=== PATIENT | female | born 1955 | race Caucasian/White ===

== ENCOUNTER 2024-07-27 08:06 | Emergency (ER) | payer OTHER, SELFPAY ==
[2024-07-27 08:10] VITALS: BP 88/50
[2024-07-27 09:00] VITALS: BP 149/79
--- NOTE | 2024-07-27 09:06 | ED.GENMED ---
History of Present Illness
General
Chief Complaint: Musculo-Skeletal Complaint
Source: patient and family
Time Seen by Provider: 07/27/24 08:39
History of Present Illness
History of Present Illness:
This patient is a 68-year-old female presents emergency department after tripping while trying to lift her leg over a gate and catching her foot. There were no preceding symptoms. She states that she hit her head on a table as she fell to the
floor and landed on both her knees. There was no loss of consciousness and patient does not take anticoagulation or antiplatelet agents. She is complaining primarily of right shoulder pain but also notes a very slight headache and that her
bilateral knees are a little sore. She denies neck pain, back pain, numbness, chest pain, shortness of breath, abdominal pain, dizziness, visual changes, vomiting. She is slightly nauseous from the pain.
Past History
Past History
ED Past Medical History: HTN
ED Past Surgical History: Gynecological
Social History
Tobacco: Non-smoker
Alcohol: Occasional
Drug: None
Living: alone
Phy Exam
Physical Exam
Physical Exam:
GENERAL: Alert , appears to be uncomfortable in regards to right shoulder
EYE: pupils equal and reactive, EOMI, no photophobia
NECK: Supple, no significant adenopathy, no midline tenderness.
ENT: o/p clr, mmm, no delgado, no raccoon, no rhinorrhea.
CARDIAC: Regular rate and rhythm .
LUNGS: Clear breath sounds bilaterally, no acute respiratory distress, no wheezes/rales/rhonchi
ABDOMEN: Soft, without focal tenderness, no r/g
NEUROLOGICAL: Alert and oriented, no focal neuro deficits
SKIN: Warm and dry, skin intact. Slight bruise noted at right patella area without associated tenderness deformity or limitation in range of motion
MUSCULOSKELETAL: No edema, well perfused. There is tenderness noted at the right upper shoulder area with limited range of motion due to pain. No tenderness noted at the scapula, clavicle, or distal humerus/elbow.
PSYCH: Normal and appropriate interaction.
Course
Orders/Labs/Results
Orders:
Orders
07/27/24 08:16
Shoulder, Right, Trauma [CR Shoulder, Trauma - Right] Urgent
Comment:
Reason For Exam: fall, right shoulder pain
07/27/24 08:18
CT Head W/o Iv Contrast Urgent
Comment:
Reason For Exam: fall, posterior head strike
07/27/24 09:06
Sling Right-Treatment ONCE
Oxycodone/Acetaminophen [Percocet 5/325] 1 tablet PO NOW STA
Vital Signs
Initial and Last Documented VS:
Initial Vital Signs
Temp Pulse Resp BP Pulse Ox
97.5 F 71 18 88/50 99
07/27/24 08:10 07/27/24 08:10 07/27/24 08:10 07/27/24 08:10 07/27/24 08:10
Last Documented Vital Signs
Temp Pulse Resp BP Pulse Ox
97.5 F 71 18 149/79 98
07/27/24 08:10 07/27/24 08:10 07/27/24 08:10 07/27/24 09:00 07/27/24 09:00
*Critical Care Note
Total Time (30-74mins, 75-104mins- exclusive of procedures): Not Applicable
Update Note
Update Note:
Patient presents to the Emergency Department with __fall
Number and Complexity of Problems Addressed at the Encounter
� Chronic conditions affecting care:
� Acute Exacerbation and/or Progression of Chronic Illness:
� Differential Diagnosis includes: But not limited to subdural hematoma, shoulder fracture, clavicle fracture, etc. etc.
Amount and/or Complexity of Data to be Reviewed and Analyzed
� I performed an independent evaluation of and my interpretation is:
EKG:
CT: Read by me, NAD
Xrays: Read by me, right shoulder with humeral fracture noted, no dislocation, no pneumothorax
Laboratory Studies:
Other:
� Review of other/old records reveals:
� Clinical information was obtained by an independent historian:
� Prescriptions/Medications Considered but not given:
� Further testing considered but not performed:
Risk of Complications and/or Morbidity or Mortality of Patient Management
� Social determinants of health affecting care:
� Discussion with other providers (PCP, Hospitalists, Consultants, etc):
� Escalation of care including admission/observation vs risk of discharge considered: Risk and benefits of narcotics discussed with patient as well as importance of Ortho follow-up. She elects to take narcotics cautiously for
pain understanding potential side effects.
ED Attending Note
-
Portions of this chart may have been created with voice recognition software.� Occasional wrong word or��sound alike� substitutions may have occurred due to the inherent limitations of voice recognition software.
Discharge Plan
Departure
Patient Disposition: Home (Routine Discharge)
Date of Disposition: 07/27/24
Time of Disposition: 09:32
Patient with high blood pressure during this ER visit?: Yes
Condition: Good
Discharge Problem:
Closed fracture of shoulder
Instructions: How to Use a Shoulder Sling, Shoulder or upper arm fracture, BLOOD PRESSURE
Prescriptions:
New
oxycodone-acetaminophen [Percocet] 5-325 mg tablet
1 tab PO Q4HPRN PRN (Reason: pain) Qty: 13 0RF
Referrals:
Edgard Ocampo MD [Active] - Next open appointment
Activity Restrictions/Additional Instructions:
PLEASE FOLLOW-UP WITH THE ORTHOPEDIC DOCTOR PROMPTLY. IF YOU DEVELOP INCREASING OR NEW PAIN, NUMBNESS, SWELLING, DIZZINESS, SEVERE HEADACHE, VOMITING, OR OTHER WORRISOME SIGNS, PLEASE RETURN TO THE ER IMMEDIATELY.
Interventions
Interventions:
*Risk Screen - Suicide Last Done: 07/27/24 09:16
*General Assessment Last Done: 07/27/24 09:16
*Neglect/Abuse Screening Last Done: 07/27/24 09:16
ED- Fall Risk Assessment Last Done: 07/27/24 09:04
*ED COVID-19 Vaccine History Last Done: 07/27/24 09:16
ED-Musculoskeletal Assessment Last Done: 07/27/24 09:04
Discharge Date and Time
Print Language: [place]
[2024-07-27] MEDS: PERCOCET 5/325 1 TABLET PO (09:10)
== END 2024-07-27 09:54 | disposition home or self-care (01) ==
LOC: EMR 08:06
PROVIDERS: EMERGENCY PHYSICIAN Emergency Medicine; FAMILY PHYSICIAN Nurse Practitioner Family
DX: S42.201A Unspecified fracture of upper end of right humerus, initial encounter for closed fracture (principal); S09.90XA Unspecified injury of head, initial encounter; R51.9 Headache, unspecified; S80.01XA Contusion of right knee, initial encounter; W18.39XA Other fall on same level, initial encounter; I10 Essential (primary) hypertension
CPT/HCPCS: 99284; 70450; 73030

== ENCOUNTER 2024-08-02 06:07 | Day surgery (SDC) | payer OTHER, SELFPAY ==
[2024-08-01 13:00] VITALS: BMI 23.6
[2024-08-02] VITALS (8 sets, daily range): BP systolic 127–141; BP diastolic 62–83; BMI 23.6
[2024-08-02] MEDS: TYLENOL 1000 MG PO (07:06)
[2024-08-02] MEDS: MOBIC 15 MG PO (07:07)
[2024-08-02] MEDS: NORMOSOL-R/PLASMALYTE-A 1000 IV (07:07)
== END 2024-08-02 12:18 | disposition home or self-care (01) ==
LOC: SDS 06:07
PROVIDERS: ATTENDING PHYSICIAN Orthopaedic Surgery; FAMILY PHYSICIAN Nurse Practitioner Family
DX: S42.291A Other displaced fracture of upper end of right humerus, initial encounter for closed fracture (principal); W01.0XXA Fall on same level from slipping, tripping and stumbling without subsequent striking against object, initial encounter
CPT/HCPCS: 23615; C1713; 36415; 73030; 76000; 93005

== ENCOUNTER 2024-09-29 14:08 | Outpatient (RCR) | payer OTHER, SELFPAY | END 2024-09-29 23:59 | disposition home or self-care (01) | LOC: RPT 14:08 | PROVIDERS: ATTENDING PHYSICIAN Orthopaedic Surgery; FAMILY PHYSICIAN Nurse Practitioner Family | DX: Z47.89 Encounter for other orthopedic aftercare (principal); S42.291D Other displaced fracture of upper end of right humerus, subsequent encounter for fracture with routine healing; M25.511 Pain in right shoulder; Z73.6 Limitation of activities due to disability; M62.81 Muscle weakness (generalized); W18.39XD Other fall on same level, subsequent encounter | CPT/HCPCS: 97010; 97110; 97140; 97162 ==

== ENCOUNTER → 2024-10-24 16:11 | Outpatient (REF) | payer OTHER, SELFPAY | LOC: WDC 16:11 | PROVIDERS: ATTENDING PHYSICIAN Nurse Practitioner Family | DX: Z12.31 Encounter for screening mammogram for malignant neoplasm of breast (principal) | CPT/HCPCS: 77063; 77067 ==

== ENCOUNTER 2024-10-31 17:04 | Outpatient (RCR) | payer OTHER, SELFPAY | END 2024-10-31 23:59 | disposition home or self-care (01) | LOC: RPT 17:04 | PROVIDERS: ATTENDING PHYSICIAN Orthopaedic Surgery; FAMILY PHYSICIAN Nurse Practitioner Family | DX: Z47.89 Encounter for other orthopedic aftercare (principal); S42.291D Other displaced fracture of upper end of right humerus, subsequent encounter for fracture with routine healing; M25.511 Pain in right shoulder; Z73.6 Limitation of activities due to disability; M62.81 Muscle weakness (generalized); W18.39XD Other fall on same level, subsequent encounter | CPT/HCPCS: 97010; 97110; 97140 ==

== ENCOUNTER 2024-11-30 17:07 | Outpatient (RCR) | payer OTHER, SELFPAY | END 2024-11-30 23:59 | disposition home or self-care (01) | LOC: RPT 17:07 | PROVIDERS: ATTENDING PHYSICIAN Orthopaedic Surgery; FAMILY PHYSICIAN Nurse Practitioner Family | DX: Z47.89 Encounter for other orthopedic aftercare (principal); S42.291D Other displaced fracture of upper end of right humerus, subsequent encounter for fracture with routine healing; M25.511 Pain in right shoulder; Z73.6 Limitation of activities due to disability; M62.81 Muscle weakness (generalized); W18.39XD Other fall on same level, subsequent encounter | CPT/HCPCS: 97010; 97110; 97140 ==

== ENCOUNTER 2024-12-28 17:16 | Outpatient (RCR) | payer OTHER, SELFPAY | END 2024-12-28 23:59 | disposition home or self-care (01) | LOC: RPT 17:16 | PROVIDERS: ATTENDING PHYSICIAN Orthopaedic Surgery; FAMILY PHYSICIAN Nurse Practitioner Family | DX: S42.291D Other displaced fracture of upper end of right humerus, subsequent encounter for fracture with routine healing (principal); Z47.89 Encounter for other orthopedic aftercare (principal); M25.511 Pain in right shoulder; Z73.6 Limitation of activities due to disability; M62.81 Muscle weakness (generalized); W18.39XD Other fall on same level, subsequent encounter | CPT/HCPCS: 97010; 97110; 97140 ==

== ENCOUNTER 2025-01-30 10:38 | Outpatient (RCR) | payer OTHER, MEDICARE, SELFPAY | END 2025-01-30 23:59 | disposition home or self-care (01) | LOC: RPT 10:38 | PROVIDERS: ATTENDING PHYSICIAN Orthopaedic Surgery; FAMILY PHYSICIAN Nurse Practitioner Family | DX: Z47.89 Encounter for other orthopedic aftercare (principal); S42.291D Other displaced fracture of upper end of right humerus, subsequent encounter for fracture with routine healing (principal); M25.511 Pain in right shoulder; Z73.6 Limitation of activities due to disability; X58.XXXD Exposure to other specified factors, subsequent encounter; W18.39XD Other fall on same level, subsequent encounter; M62.81 Muscle weakness (generalized) | CPT/HCPCS: 97010; 97110; 97140 ==

== ENCOUNTER 2025-03-02 10:05 | Outpatient (RCR) | payer OTHER, MEDICARE, SELFPAY | END 2025-03-02 23:59 | disposition home or self-care (01) | LOC: RPT 10:05 | PROVIDERS: ATTENDING PHYSICIAN Orthopaedic Surgery; FAMILY PHYSICIAN Nurse Practitioner Family | DX: Z47.89 Encounter for other orthopedic aftercare (principal); S42.291D Other displaced fracture of upper end of right humerus, subsequent encounter for fracture with routine healing; M25.511 Pain in right shoulder; Z73.6 Limitation of activities due to disability; M62.81 Muscle weakness (generalized); W18.39XD Other fall on same level, subsequent encounter | CPT/HCPCS: 97110; 97140 ==